=== PATIENT | female | born 1960 | race Caucasian/White ===

== ENCOUNTER 2018-08-13 15:09 | Outpatient (CLI) | payer OTHER | END 2018-08-13 15:10 | disposition home or self-care (01) | LOC: BICMAMMO 15:09 | PROVIDERS: ATTEND Family Medicine | DX: Z12.31 Encounter for screening mammogram for malignant neoplasm of breast (principal) | CPT/HCPCS: 77063; 77067 ==

== ENCOUNTER 2024-03-03 13:58 | Outpatient (CLI) | payer MEDICARE, OTHER | END 2024-03-03 13:59 | disposition home or self-care (01) | LOC: ULT 13:58 | PROVIDERS: ATTEND Family Medicine | DX: R10.13 Epigastric pain (principal); K76.0 Fatty (change of) liver, not elsewhere classified; R16.0 Hepatomegaly, not elsewhere classified | CPT/HCPCS: 76700 ==

== ENCOUNTER 2024-12-01 11:44 | Outpatient (CLI) | payer MEDICARE, OTHER | END 2024-12-01 11:45 | disposition home or self-care (01) | LOC: SCSRAD 11:44 | PROVIDERS: ATTEND Family Medicine | DX: R06.02 Shortness of breath (principal) | CPT/HCPCS: 71046 ==

== ENCOUNTER 2025-07-24 07:30 | Outpatient (CLI) | payer MEDICARE, OTHER ==
[2025-07-24] MEDS ORDERED: Bacteriostatic Normal Saline 30 ML VIAL ONE (09:36)
[2025-07-24] MEDS ORDERED: Sincalide 5 MCG VIAL ONE (09:36)
== END 2025-07-24 07:31 | disposition home or self-care (01) ==
LOC: NM 07:30
PROVIDERS: ATTEND Family Medicine
DX: R10.13 Epigastric pain (principal)
CPT/HCPCS: 78227; A9537; J2805

== ENCOUNTER → 2025-08-11 | Day surgery (SDC) | payer MEDICARE, OTHER | LOC: SDC 12:52 | PROVIDERS: ATTEND Internal Medicine Gastroenterology | PROC: 4A0 Measurement and Monitoring, Physiological Systems, Measurement (ICD-10-PCS; principal; 2025-08-11) | DX: K21.9 Gastro-esophageal reflux disease without esophagitis (principal); I10 Essential (primary) hypertension; E78.5 Hyperlipidemia, unspecified; R73.03 Prediabetes; Z87.59 Personal history of other complications of pregnancy, childbirth and the puerperium; Z79.84 Long term (current) use of oral hypoglycemic drugs; Z79.85 Long-term (current) use of injectable non-insulin antidiabetic drugs; Z79.899 Other long term (current) drug therapy | CPT/HCPCS: 91034 ==